=== PATIENT | female | born 1950 | race Caucasian/White ===

== ENCOUNTER → 2019-08-29 | Outpatient (CLI) | payer MEDICARE, BC | END | disposition home or self-care (01) | LOC: CFH 16:04 | PROVIDERS: ATTEND Nurse Practitioner Family | DX: M41.84 Other forms of scoliosis, thoracic region (principal); J45.909 Unspecified asthma, uncomplicated; K21.9 Gastro-esophageal reflux disease without esophagitis | CPT/HCPCS: 71046 ==